=== PATIENT | female | born 1960 | race Hispanic/Latino ===

== ENCOUNTER → 2019-06-05 | Outpatient (CLI) | payer MEDICARE ==
--- NOTE | 2019-06-05 13:08 | Diagnostic Imaging Report ---
EXAM: SP LUMBAR, COMPLETE MIN 4VW DATE: 06/05/2019 12:25 PM INDICATION: Back pain COMPARISON: None FINDINGS: AP, bilateral oblique, lateral, and coned-down views are obtained of the lumbar spine There are 5 nonrib-bearing lumbar-type vertebral bodies. There is no evidence for acute fracture or dislocation. Lumbar spinal alignment is within normal limits. Vertebral body heights and intervertebral disc space heights are relatively well-maintained. No focal lytic or blastic abnormality is identified. There are mild degenerative changes of the lower lumbar spine. The surrounding soft tissues are unremarkable. Cholecystectomy clips are noted within the right upper quadrant. The remaining visualized abdominal contents are grossly unremarkable. IMPRESSION: No acute radiographic abnormality identified within the lumbar spine. Signed by: Dr. Charan Marcano MD on 06/05/2019 1:05 PM
== END ==
LOC: RAD 11:58
PROVIDERS: ATTEND Family Medicine
DX: M54.5 Low back pain (principal)
CPT/HCPCS: 72110

== ENCOUNTER 2022-07-26 23:13 | Inpatient (IN) | payer MEDICARE ==
[~2022-07-26] VITALS: Ht 157.5 cm; Wt 63.5 kg
[2022-07-27] MEDS ORDERED: ONDANSETRON HCL INJ 2MG/ML 2ML 2 MG/ML VIAL IV STA (00:04)
[2022-07-27] MEDS ORDERED: Morphine 4mg INJECTION 4 MG/ML INJ IV ONE (00:15)
[2022-07-27] MEDS ORDERED: SODIUM CHLORIDE 0.9% 1000ML 1,000 ML IV ONE (00:15)
[2022-07-27 00:24] LABS: BASOPHILS # (AUTO) 0.1 (0.0-0.1); BASOPHILS % 0.5 % (0.0-1.0); EOSINOPHILS # (AUTO) 0.5 (0.0-0.4); EOSINOPHILS % 3.4 % (0.0-6.0); HEMATOCRIT 50.5 % (34.2-44.1); HEMOGLOBIN 16.7 g/dL (12.0-16.0); LYMPHOCYTES # (AUTO) 2.3 (1.0-3.2); LYMPHOCYTES % 15.1 % (18.0-39.1); MEAN CORPUSCULAR HEMOGLOBIN 29.5 pg (28-32); MEAN CORPUSCULAR HGB CONC 33.1 g/dL (31-35); MEAN CORPUSCULAR VOLUME 89.1 fL (81-99); MONOCYTES # (AUTO) 0.8 (0.2-0.8); MONOCYTES % 5.5 % (4.4-11.3); NEUTROPHILS # (AUTO) 11.5 (2.1-6.9); NEUTROPHILS % 74.9 % (38.7-80.0); PLATELET COUNT 330 x10e3/uL (140-360); RED BLOOD COUNT 5.67 x10e6/uL (3.6-5.1); RED CELL DISTRIBUTION WIDTH 13.5 % (11.7-14.4)
[2022-07-27 00:27] LABS: CLARITY,URINE CLEAR (CLEAR); COLOR,URINE YELLOW (YELLOW); KETONES,URINE 2+ (NEGATIVE); LEUKOCYTE ESTERASE ,URINE NEGATIVE (NEGATIVE); NITRITE,URINE NEGATIVE (NEGATIVE); PROTEIN,URINE DIPSTICK TRACE (NEGATIVE); URINE UROBILINOGEN 0.2 mg/dL (0.2 - 1)
[2022-07-27] MEDS ORDERED: ONDANSETRON HCL INJ 2MG/ML 2ML 2 MG/ML VIAL ONE ×2 (00:29→08:08)
[2022-07-27 00:34] LABS: BACTERIA,URINE FEW /HPF; EPITHELIAL CELLS,URINE RARE /LPF; MUCUS,URINE MODERATE (RARE); RBC,URINE 0-5 /HPF (0-5); WBC,URINE (MAN) 0-5 /HPF (0-5)
[2022-07-27 00:38] LABS: ALBUMIN 4.5 g/dL (3.5-5.0); ALBUMIN/GLOBULIN RATIO 1.2 (0.8-2.0); CALCIUM 10.2 mg/dL (8.4-10.2); CREATININE, SERUM 0.87 mg/dL (0.57-1.11)
[2022-07-27] MEDS ORDERED: IOPAMIDOL 370 MG/ML 100 ML INFUS..BTL INJ ONE (01:08)
[2022-07-27] MEDS ORDERED: DICYCLOMINE HCL 20 MG/2 ML VIAL IM ONE ×2 (02:45→03:00)
[2022-07-27] MEDS ORDERED: PROMETHAZINE 12.5MG/ NACL 0.9% 12.5 MG/50 ML BAG IV ONE (02:45)
[2022-07-27] MEDS ORDERED: PROMETHAZINE 12.5MG/ NACL 0.9% 50 ML ONE (02:53)
[2022-07-27] MEDS ORDERED: METOCLOPRAMIDE HCL 10 MG/2ML VIAL IV ONE (04:15)
[2022-07-27] MEDS: SODIUM CHLORIDE 0.9% 1000ML 1,000 ML IV SCH ×2 (04:15→14:40)
[2022-07-27] MEDS ORDERED: Morphine 4mg INJECTION 4 MG/ML INJ IV PRN (04:15)
[2022-07-27] MEDS ORDERED: LIDOCAINE HCL 2% LOCAL INJ 5 ML SDV VIAL INJ ONE (08:08)
[2022-07-27] MEDS ORDERED: METOCLOPRAMIDE HCL 10 MG/2ML VIAL ONE (08:08)
[2022-07-27] MEDS ORDERED: PROPOFOL IV EMULSION 10 MG/ML 20 ML VIAL ONE (08:08)
[2022-07-27] MEDS ORDERED: POVIDONE IODINE 0.05% 0.05 % ML PO ONE (08:08)
[2022-07-27] MEDS ORDERED: EPHEDRINE SULFATE INJ 50 MG/ML VIAL ONE (08:08)
[2022-07-27] MEDS: ONDANSETRON HCL INJ 2MG/ML 2ML 2 MG/ML VIAL IV PRN ×2 (11:53→15:20)
[2022-07-27] MEDS ORDERED: LIPITOR10 MG PO (13:00)
[2022-07-27 13:01] VITALS: BP 114/67
[2022-07-27] MEDS ORDERED: SIMETHICONE 80 MG CHEW PO PRN (14:15)
[2022-07-27] MEDS: PROMETHAZINE 12.5MG/ NACL 0.9% 12.5 MG/50 ML BAG IV PRN (16:22)
[2022-07-27] MEDS: HYDROMORPHONE 1MG/1ML INJ IV PRN ×2 (16:23→20:13)
[2022-07-27 16:59] VITALS: BP 116/77
[2022-07-27] MEDS ORDERED: LACTATED RINGER'S 1,000 ML INJ ONE (18:00)
[2022-07-27 20:00] VITALS: BP 100/55
[2022-07-27] MEDS: METRONIDAZOLE 250MG/NS 50ML 50 ML IV SCH (20:13)
[2022-07-27 22:50] VITALS: BP 100/55
[2022-07-28] VITALS (7 sets, daily range): BP systolic 95–113; BP diastolic 45–98
[2022-07-28] MEDS: HYDROMORPHONE 1MG/1ML INJ IV PRN ×4 (00:05→21:27)
[2022-07-28] MEDS ORDERED: DONNATAL/LIDOCAINE/MAALOX 30 ML SUSP PO ONE (02:03)
[2022-07-28] MEDS ORDERED: LIDOCAINE VISC 2% SOLN 15 ML UDC PO ONE (02:30)
[2022-07-28] MEDS ORDERED: MAGNESIUM/ALUMINUM/SIMETHICONE 30 ML UDC PO ONE (02:30)
[2022-07-28] MEDS ORDERED: BELLADONNA ALK/PHENOBARBITAL 5 ML UDC PO ONE (02:30)
[2022-07-28] MEDS: METRONIDAZOLE 250MG/NS 50ML 50 ML IV SCH ×3 (04:15→21:19)
[2022-07-28 05:30] LABS: BASOPHILS % 0.3 % (0.0-1.0); EOSINOPHILS # (AUTO) 0.7 (0.0-0.4); EOSINOPHILS % 7.6 % (0.0-6.0); HEMATOCRIT 40.8 % (34.2-44.1); HEMOGLOBIN 12.9 g/dL (12.0-16.0); LYMPHOCYTES # (AUTO) 1.6 (1.0-3.2); LYMPHOCYTES % 17.5 % (18.0-39.1); MEAN CORPUSCULAR HEMOGLOBIN 29.6 pg (28-32); MEAN CORPUSCULAR HGB CONC 31.6 g/dL (31-35); MEAN CORPUSCULAR VOLUME 93.6 fL (81-99); MONOCYTES # (AUTO) 0.6 (0.2-0.8); NEUTROPHILS # (AUTO) 6.1 (2.1-6.9); NEUTROPHILS % 67.3 % (38.7-80.0); PLATELET COUNT 241 x10e3/uL (140-360); RED BLOOD COUNT 4.36 x10e6/uL (3.6-5.1); RED CELL DISTRIBUTION WIDTH 13.7 % (11.7-14.4)
[2022-07-28 06:00] LABS: ALBUMIN 3.1 g/dL (3.5-5.0); ALBUMIN/GLOBULIN RATIO 1.1 (0.8-2.0); ANION GAP 10.9 mmol/L (8-16); CALCIUM 8.6 mg/dL (8.4-10.2); CREATININE, SERUM 0.6 mg/dL (0.57-1.11); POTASSIUM 3.9 mmol/L (3.5-5.1)
[2022-07-28 06:37] LABS: CHOL/HDL RATIO 2.6 (3.0-3.6)
[2022-07-28] MEDS ORDERED: FAMOTIDINE 20 MG TAB PO SCH (09:00)
[2022-07-28] MEDS ORDERED: SODIUM CHLORIDE 0.9% 1000ML 1,000 ML ONE (09:48)
[2022-07-28] MEDS: PROMETHAZINE 12.5MG/ NACL 0.9% 12.5 MG/50 ML BAG IV PRN (21:31)
[2022-07-29] VITALS (7 sets, daily range): BP systolic 94–127; BP diastolic 53–63
[2022-07-29] MEDS ORDERED: METOCLOPRAMIDE HCL 10 MG/2ML VIAL IV STA (00:09)
[2022-07-29] MEDS: METRONIDAZOLE 250MG/NS 50ML 50 ML IV SCH ×3 (03:23→21:40)
[2022-07-29 04:54] LABS: BASOPHILS % 0.4 % (0.0-1.0); EOSINOPHILS # (AUTO) 0.6 (0.0-0.4); EOSINOPHILS % 7.2 % (0.0-6.0); HEMATOCRIT 40.5 % (34.2-44.1); HEMOGLOBIN 12.8 g/dL (12.0-16.0); LYMPHOCYTES # (AUTO) 1.8 (1.0-3.2); LYMPHOCYTES % 21.6 % (18.0-39.1); MEAN CORPUSCULAR HGB CONC 31.6 g/dL (31-35); MEAN CORPUSCULAR VOLUME 91.8 fL (81-99); MONOCYTES # (AUTO) 0.6 (0.2-0.8); MONOCYTES % 7.3 % (4.4-11.3); NEUTROPHILS # (AUTO) 5.3 (2.1-6.9); NEUTROPHILS % 63.3 % (38.7-80.0); PLATELET COUNT 238 x10e3/uL (140-360); RED BLOOD COUNT 4.41 x10e6/uL (3.6-5.1); RED CELL DISTRIBUTION WIDTH 13.7 % (11.7-14.4)
[2022-07-29 05:15] LABS: ANION GAP 11.8 mmol/L (8-16); CREATININE, SERUM 0.67 mg/dL (0.57-1.11); POTASSIUM 3.8 mmol/L (3.5-5.1)
[2022-07-29] MEDS: METOCLOPRAMIDE HCL 10 MG/2ML VIAL IV SCH ×3 (05:54→18:28)
[2022-07-29] MEDS: ONDANSETRON HCL INJ 2MG/ML 2ML 2 MG/ML VIAL IV PRN (12:43)
[2022-07-29] MEDS: HYDROMORPHONE 1MG/1ML INJ IV PRN (12:43)
[2022-07-30] MEDS: METOCLOPRAMIDE HCL 10 MG/2ML VIAL IV SCH ×4 (00:14→17:49)
[2022-07-30] MEDS: HYDROMORPHONE 1MG/1ML INJ IV PRN ×2 (00:14→16:54)
[2022-07-30] MEDS: METRONIDAZOLE 250MG/NS 50ML 50 ML IV SCH ×2 (03:58→12:00)
[2022-07-30 04:00] VITALS: BP 102/53
[2022-07-30 07:17] LABS: ALBUMIN 3.2 g/dL (3.5-5.0); ALBUMIN/GLOBULIN RATIO 1.1 (0.8-2.0); ANION GAP 12.9 mmol/L (8-16); CALCIUM 9.3 mg/dL (8.4-10.2); CREATININE, SERUM 0.68 mg/dL (0.57-1.11); POTASSIUM 3.9 mmol/L (3.5-5.1)
[2022-07-30 08:00] VITALS: BP 102/53
[2022-07-30 08:19] VITALS: BP 117/58
[2022-07-30 12:03] VITALS: BP 126/79
[2022-07-30 16:34] VITALS: BP 122/60
[2022-07-30] MEDS: ONDANSETRON HCL INJ 2MG/ML 2ML 2 MG/ML VIAL IV PRN (16:54)
[2022-07-30 20:00] VITALS: BP 104/55
[2022-07-31] VITALS (8 sets, daily range): BP systolic 100–125; BP diastolic 51–77
[2022-07-31] MEDS: METOCLOPRAMIDE HCL 10 MG/2ML VIAL IV SCH ×4 (00:23→18:00)
[2022-07-31 05:47] LABS: ALBUMIN 3.2 g/dL (3.5-5.0); ANION GAP 14.5 mmol/L (8-16); BILIRUBIN,DIRECT 0.2 mg/dL (0.0-0.5); CALCIUM 9.1 mg/dL (8.4-10.2); CREATININE, SERUM 0.63 mg/dL (0.57-1.11); POTASSIUM 3.5 mmol/L (3.5-5.1)
[2022-07-31] MEDS ORDERED: ONDANSETRON HCL INJ 2MG/ML 2ML 2 MG/ML VIAL ONE (18:23)
[2022-07-31] MEDS ORDERED: METOCLOPRAMIDE HCL 10 MG/2ML VIAL ONE (18:28)
[2022-07-31] MEDS: SUCRALFATE 1 GM TAB PO SCH (21:21)
[2022-08-01] VITALS: BP 118/70
[2022-08-01] MEDS: METOCLOPRAMIDE HCL 10 MG/2ML VIAL IV SCH ×2 (00:20→05:19)
[2022-08-01] MEDS: HYDROMORPHONE 1MG/1ML INJ IV PRN (00:56)
[2022-08-01 04:00] VITALS: BP 114/64
[2022-08-01 07:51] VITALS: BP 114/70
[2022-08-01 08:00] VITALS: BP 114/70
[2022-08-01] MEDS: SUCRALFATE 1 GM TAB PO SCH (08:13)
[2022-08-01] MEDS ORDERED: ONDANSETRON ODT4 MG PO (08:59)
[2022-08-01] MEDS ORDERED: CARAFATE1 GM PO (08:59)
[2022-08-01] MEDS ORDERED: SIMETHICONE80 MG PO (08:59)
[2022-08-01] MEDS ORDERED: REGLAN10 MG PO (08:59)
[2022-08-01 11:29] VITALS: BP 122/70
== END 2022-08-01 12:40 | disposition home or self-care (01) | DRG 440 ==
LOC: ER 23:43 → ERHOLD 07-27 04:16 → MED/SURG 07-27 12:30 → OBSVTOIN 07-29 11:23
PROVIDERS: ADMIT Internal Medicine; ATTEND Internal Medicine
PROC: 0DB78ZX Excision of Stomach, Pylorus, Via Natural or Artificial Opening Endoscopic, Diagnostic (ICD-10-PCS; 2022-07-31)
PROC: 0DB68ZZ Excision of Stomach, Via Natural or Artificial Opening Endoscopic (ICD-10-PCS; principal; 2022-07-31 17:30)
DX: K85.90 Acute pancreatitis without necrosis or infection, unspecified (principal); R74.01 Elevation of levels of liver transaminase levels; K31.7 Polyp of stomach and duodenum; K44.9 Diaphragmatic hernia without obstruction or gangrene; K20.90 Esophagitis, unspecified without bleeding; Z20.822 Contact with and (suspected) exposure to COVID-19
CPT/HCPCS: 36415; 43239; 74177; 80048; 80053; 80061; 80076; 81001; 83690; 85025; 88304; 88305; 88312; 88342; 99252; 99285; G0378; J0500; J0696; J1170; J2001; J2270; J2405; J2550; J2765; J7030; J7121; Q9967

== ENCOUNTER 2023-08-19 14:28 | Emergency (ER) | payer MEDICARE ==
[~2023-08-19] VITALS: Ht 157.5 cm; Wt 61.7 kg
[~2023-08-19 14:28] MED LIST: CARAFATE1 GM PO; CEFUROXIME250 MG PO; LIPITOR10 MG PO; ONDANSETRON ODT4 MG PO; REGLAN10 MG PO; SIMETHICONE80 MG PO; VALIUM2 MG PO
[2023-08-19] MEDS: HYDROCODONE/APAP 5MG-325MG TAB PO ONE (14:50)
[2023-08-19] MEDS: DEXAMETHASONE SOD PHOS 10 MG/1 ML VIAL IM ONE (14:51)
[2023-08-19] MEDS: KETOROLAC TROMETHAMINE 60 MG/2 ML VIAL IM ONE (14:51)
[2023-08-19 15:25] LABS: BACTERIA,URINE FEW /HPF; BILIRUBIN,URINE NEGATIVE (NEGATIVE); CLARITY,URINE CLEAR (CLEAR); COLOR,URINE YELLOW (YELLOW); EPITHELIAL CELLS,URINE FEW /LPF; GLUCOSE, URINE NEGATIVE (NEGATIVE); KETONES,URINE NEGATIVE (NEGATIVE); LEUKOCYTE ESTERASE ,URINE NEGATIVE (NEGATIVE); NITRITE,URINE NEGATIVE (NEGATIVE); PH,URINE 6 (5 - 7); PROTEIN,URINE DIPSTICK NEGATIVE (NEGATIVE); RBC,URINE 0-5 /HPF (0-5); URINE UROBILINOGEN 0.2 mg/dL (0.2 - 1); WBC,URINE (MAN) 0-5 /HPF (0-5)
[2023-08-19 16:17] VITALS: BP 126/64; PULSE 84; RESP 18; O2SAT 99
== END 2023-08-19 16:18 | disposition home or self-care (01) ==
LOC: ER 14:38
DX: M54.9 Dorsalgia, unspecified (principal); G89.29 Other chronic pain; I10 Essential (primary) hypertension; E78.5 Hyperlipidemia, unspecified; V89.2XXD Person injured in unspecified motor-vehicle accident, traffic, subsequent encounter
CPT/HCPCS: 81001; 99282; J1100; J1885

== ENCOUNTER 2024-08-01 17:12 | Emergency (ER) | payer MEDICARE ==
[~2024-08-01] VITALS: Ht 157.5 cm; Wt 61.7 kg
[~2024-08-01 17:12] MED LIST changes: +MYSOLINE50 MG PO; +ONDANSETRON HCL4 MG PO; +PANTOPRAZOLE SO40 MG PO
[2024-08-01 17:59] VITALS: PULSE 88; RESP 17; TEMP 98.4
[2024-08-01] MEDS: ORPHENADRINE CITRATE 30 MG/ML VIAL IM ONE (19:25)
[2024-08-01] MEDS: KETOROLAC TROMETHAMINE 60 MG/2 ML VIAL IM ONE (19:26)
[2024-08-01] MEDS ORDERED: CYCLOBENZAPRINE5 MG PO (20:29)
[2024-08-01] MEDS ORDERED: NAPROSYN500 MG PO (20:29)
[2024-08-01 21:51] VITALS: BP 132/65; PULSE 78; RESP 17; TEMP 98.3; O2SAT 98
== END 2024-08-01 20:35 | disposition home or self-care (01) ==
LOC: ER 19:20
DX: M54.50 Low back pain, unspecified (principal); M25.551 Pain in right hip; W22.8XXA Striking against or struck by other objects, initial encounter; Y93.01 Activity, walking, marching and hiking; Y92.512 Supermarket, store or market as the place of occurrence of the external cause; E78.5 Hyperlipidemia, unspecified
CPT/HCPCS: 72100; 73502; 99283; J1885; J2360